=== PATIENT | male | born 1970 | race Caucasian/White ===

== ENCOUNTER 2025-03-22 12:41 | Outpatient (CLI) | payer OTHER, SELFPAY ==
--- OUTSIDE RECORDS SUMMARY | 2025-01-18 15:20 | XMS_ITS | Encounter Summary ---
[place] [address] Care Team Providers Care Electrical Tech Name Role Phone Javon Bo MD Unavailable [phone] Lisy Keene RETURNED TELEPHONE EQUIPMENT APPRAISER Unavailable Unavailabl e Judy You MD Unavailable [phone] Reason for Visit * Reason Comments Laceration Cut left arm with tr ee saw Encounter Details Date Type Department Care Team (Late st Contact Info) Description 01/18/2025 3:20 PM EDT Office Visit [facility] [place] [address] [address] Callum Rock MD [facility] [place] [place] [address] Laceration of left wrist, initial encounter (Primary Dx) Social History Tobacco Use Types Packs/Day Years Used Date Smoking Tobacco: Former Cigarettes Q uit: 2016 Smokeless Tobacco: Former Quit: 1995 Alcohol Use Standard Drinks/Week Comments Yes 0 (1 standard drink = 0.6 oz pur e alcohol) maybe once per week--beer B1300 Health Literacy Answer Date Recor ded How often do you need to hav e someone help you when you read instructions, pamphlets, or other written material from your doctor or pharmacy? Never 02/20/2024 Social Connection and Isolat ion Panel [NHANES] Answer Date Recorded In a typical week, how many times do you talk on the phone with family, friends, or neighbors? Twice a week 02/20/2024 How often do you get togethe r with friends or relatives? Once a week 02/20/2024 How often do you attend chur ch or amish services? More than 4 times per year 02/20/2024 Do you belong to any clubs o r organizations such as orthodox groups, unions, fraternal or athletic groups, or school groups? No 02/20/2024 How often do you attend meet ings of the clubs or organizations you belong to? Never 02/20/2024 Are you , , di vorced, , never , or living with a partner? 02/20/2024 AUDIT-C Answer Date Recorded Q1: How often do you have a drink containing alc ohol? 2-4 times a month 02/20/2024 Q2: How many drinks containi ng alcohol do you have on a typical day when you are drinking? 1 or 2 02/20/2024 Q3: How often do you have si x or more drinks on one occasion? Monthly 02/20/2024 Overall Financial Resource Strain (CARDIA) Answe r Date Recorded How hard is it for you to pa y for the very basics like food, housing, medical care, and heating? Not hard at all 02/20/2024 PHQ-2 Answer Date Recorded PHQ-2 Total Score 2 02/20/2024 [facility] Occupat ional [facility] - Occupational Stress Questionnaire Answer Date Recorded Do you feel stress - tense, restless, nervous, or anxious, or unable to sleep at night because your mind is troubled all the time - these days? Only a little 02/20/2024 Hunger Vital Sign Answer Date Recorded Within the past 12 months, y ou worried that your food would run out before you got the money to buy more. Never true 02/20/20 24 Within the past 12 months, t he food you bought just didn't last and you didn't have money to get more. Never true 02/20/2024 PRAPARE - Transportation Answer Date Re corded In the past 12 months, has l ack of transportation kept you from medical appointments or from getting medications? No 02/06 In the past 12 months, has l ack of transportation kept you from meetings, work, or from getting things needed for daily living? No 02/20/2024 Housing Stability Vital Sign Answer [place] e Recorded In the last 12 months, was t here a time when you were not able to pay the mortgage or rent on time? No 02/20/2024 Number of Times Moved in the Last Year Not on fi le 02/20/2024 At any time in the past 12 m [facility], were you homeless or living in a alf (including now)? No 02/20/2024 Sex and Gender Information Value Date Recorded Sex Assigned at Not on file Legal Sex Male 2:26 PM EDT Gender Identity Not on file Sexual Orientation Not on file documented as of this encounter Progress Notes * Callum Rock MD - 01/18/2025 3:20 PM EDT Images from the original note were not included. Assessment & Plan Laceration of left wrist, initial encounter Repaired as per note. Orders: CO SIMPLE REPAIR SCALP/NECK/AX/GENIT/TRUNK 2.5CM/< History of Present Illness Patient Identification Jovanny Costa is a 54 y.o. male. History of Present Illness Patient Identification Jovanny Costa is a 54 y.o. male. Patient information was obtained from patient. History/Exam limitations: none. Chief Complaint Laceration (Cut left arm with tree saw) Patient presents for evaluation of a laceration to the left upper extremity. Injury occurred 1/2 hours ago. The mechanism of the wound was a tree saw. The patient reports pain in the area. There werenot other injuries. Patient denies other concerns. The tetanus status is up to date. No past medical history on file. Family History Problem Relation Age of Onset Breast Cancer Mother Breast Cancer Sister Breast Cancer Maternal Grandmother Diabetes Paternal Grandfather Clotting Disorder Paternal Grandfather No current outpatient medications on file. No current facility-administered medications for this visit. No Known Allergies Social History Socioeconomic History Marital status: Spouse name: Not on file Number of children: Not on file Years of education: Not on file Highest education level: Not on file Occupational History Not on file Tobacco Use Smoking status: Former Current packs/day: 0.00 Types: Cigarettes Quit date: 2015 Years since quittin.3 Smokeless tobacco: Former Quit date: 1995 Vaping Use Vaping status: Never Used Substance and Sexual Activity Alcohol use: Yes Comment: maybe once per week--beer Drug use: Never Sexual activity: Not on file Other Topics Concern Not on file Social History Narrative Not on file Social Drivers of Health Financial Resource Strain: Low Risk (02/20/2024) Overall Financial Resource Strain (CARDIA) Difficulty of Paying Living Expenses: Not hard at all Food Insecurity: No Food Insecurity (02/20/2024) Hunger Vital Sign Worried About Running Out of Food in the Last Year: Never true Ran Out of Food in the Last Year: Never true Transportation Needs: No Transportation Needs (02/20/2024) PRAPARE - Transportation Lack of Transportation (Medical): No Lack of Transportation (Non-Medical): No Physical Activity: Not on file Stress: No Stress Concern Present (02/20/2024) [facility] - Occupational Stress Questionnaire Feeling of Stress : Only a little Social Connections: Moderately Integrated (02/20/2024) Social Connection and Isolation Panel [NHANES] Frequency of Communication with Friends and Family: Twice a week Frequency of Social Gatherings with Friends and Family: Once a week Attends Anabaptism Services: More than 4 times per year Active Member of Clubs or Organizations: No Attends Club or Organization Meetings: Never Marital Status: Intimate Partner Violence: Not At Risk (02/20/2024) Humiliation, Afraid, Rape, and Kick questionnaire Fear of Current or Ex-Partner: No Emotionally Abused: No Physically Abused: No Sexually Abused: No Housing Stability: Unknown (02/20/2024) Housing Stability Vital Sign Unable to Pay for Housing in the Last Year: No Number of Times Moved in the Last Year: Not on file Homeless in the Last Year: No Review of Systems Pertinent items are noted in HPI. Physical Exam There were no vitals taken for this visit. There is a linear laceration measuring approximately 2 cm in length on the left upper extremity. Examination of the wound for foreign bodies and devitalized tissue showed none. Examination of the surrounding area for neural or vascular damage showed none ED Course Treatments: Laceration repair: The wound area was irrigated with sterile saline and draped in a sterile fashion. The wound area was anesthetized with Lidocaine 1% without epinephrine without added sodium bicarbonate. The wound was repaired with 3-0 Vicryl; 3 sutures were used. Disposition: Home Nonsteroidals Patient information was obtained from patient. History/Exam limitations: none. Chief Complaint Laceration (Cut left arm with tree saw) Patient presents for evaluation of a laceration to the left wrist. Injury occurred 1/2 hour ago. The mechanism of the wound was a tree saw came down on his wrist. The patient reports pain in the affected area.. There were not other injuries. No past medical history on file. Family History Problem Relation Age of Onset Breast Cancer Mother Breast Cancer Sister Breast Cancer Maternal Grandmother Diabetes Paternal Grandfather Clotting Disorder Paternal Grandfather No current outpatient medications on file. No current facility-administered medications for this visit. No Known Allergies Social History Socioeconomic History Marital status: Spouse name: Not on file Number of children: Not on file Years of education: Not on file Highest education level: Not on file Occupational History Not on file Tobacco Use Smoking status: Former Current packs/day: 0.00 Types: Cigarettes Quit date: 2015 Years since quittin.3 Smokeless tobacco: Former Quit date: 1995 Vaping Use Vaping status: Never Used Substance and Sexual Activity Alcohol use: Yes Comment: maybe once per week--beer Drug use: Never Sexual activity: Not on file Other Topics Concern Not on file Social History Narrative Not on file Social Drivers of Health Financial Resource Strain: Low Risk (02/20/2024) Overall Financial Resource Strain (CARDIA) Difficulty of Paying Living Expenses: Not hard at all Food Insecurity: No Food Insecurity (02/20/2024) Hunger Vital Sign Worried About Running Out of Food in the Last Year: Never true Ran Out of Food in the Last Year: Never true Transportation Needs: No Transportation Needs (02/20/2024) PRAPARE - Transportation Lack of Transportation (Medical): No Lack of Transportation (Non-Medical): No Physical Activity: Not on file Stress: No Stress Concern Present (02/20/2024) [facility] - Occupational Stress Questionnaire Feeling of Stress : Only a little Social Connections: Moderately Integrated (02/20/2024) Social Connection and Isolation Panel [NHANES] Frequency of Communication with Friends and Family: Twice a week Frequency of Social Gatherings with Friends and Family: Once a week Attends Anabaptism Services: More than 4 times per year Active Member of Clubs or Organizations: No Attends Club or Organization Meetings: Never Marital Status: Intimate Partner Violence: Not At Risk (02/20/2024) Humiliation, Afraid, Rape, and Kick questionnaire Fear of Current or Ex-Partner: No Emotionally Abused: No Physically Abused: No Sexually Abused: No Housing Stability: Unknown (02/20/2024) Housing Stability Vital Sign Unable to Pay for Housing in the Last Year: No Number of Times Moved in the Last Year: Not on file Homeless in the Last Year: No Review of Systems Pertinent items are noted in HPI. Physical Exam There were no vitals taken for this visit. There is a linear laceration measuring approximately 1.5 cm in length on the left wrist. Examination of the wound for foreign bodies and devitalized tissue showed none. Examination of the surroundingarea for neural or vascular damage showed none ED Course Studies: None indicated. Records Reviewed: Old medical records. Progress Note: There were no vitals filed for this visit. There is no height or weight on file to calculate BMI. SUBJECTIVE: Chief Complaint Patient presents with Laceration Cut left arm with tree saw HPI: laceration to left arm - tree saw broke and hit him in wrist Review of Systems OBJECTIVE: Physical Exam Skin: documented in this encounter Plan of Treatment Upcoming Encounters Date Type Department Care Team (Late st Contact Info) Description 04/06/2025 1:20 PM EDT Office Visit [facility] [address] [place] [address] Evangelista Bagley MD [address] [place] [address] [address] [place] [address] 05/19/2025 10:00 AM EDT Appointment [facility] [address] [place] [address]. [address] [place] [address] 05/19/2025 10:15 AM EDT Appointment [facility] [address] [place] [address] [address] [place] [address] Simi Butts, [employer] [address] [place] [address] [address] [place] [address] 06/28/2025 9:45 AM EDT Appointment [facility] [address] [facility] [address] [place] [address] Judy You MD [address] [facility] [place] [address] Scheduled Orders Name Type Priority Associated Diagnoses Orde r Schedule CO SIMPLE REPAIR SCALP/NECK/AX/GENIT/T RUNK 2.5CM/< CO Charge Routine Laceration of left wrist, initial encounter Ordered: 01/18/2025 documented as of this encounter Goals Goal Patient Goal Type Associated Problems Recent Progress Patient-Stated? Author Maintain a healthy diet, exercise regularly and maintain an ideal body weight General No GroDilma sawyer CCMA Stay Tobacco Free Lifestyle No Dilma Gutierrez CCMA documented as of this encounter Visit Diagnoses Diagnosis Laceration of left wrist, initial encounter- Primary documented in this encounter Additional Health Concerns Assessment Noted Time PHQ-9 Depression Total Score: 2 02/20/20 10:36 AM EDT PHQ-2 Depression Total Score: 2 02/20/20 10:36 AM EDT documented as of this encounter Care Teams Electrical Tech Relationship Specialty Start Date End Date Javon Bo MD [address] [place] [address] Medical Oncologist Internal Medicine-Hematology and Oncology 02/19/24 Lisy Kenee, RETURNED TELEPHONE EQUIPMENT APPRAISER Y[employer] 02/24/24 Judy You MD [address] [facility] [place] [address] Radiology-Radiation Oncology 03/02/24 documented as of this encounter
--- OUTSIDE RECORDS SUMMARY | 2025-01-27 11:00 | XMS_ITS | Encounter Summary ---
Author Organization [place] [address] Care Team Providers Care Optimization Engineer Name Role Phone Javon Bo MD Unavailable [phone] Lisy Keene PSYCHIATRIC TECHNICIAN ASSISTANT Unavailable Unavailabl e Judy You MD Unavailable [phone] Reason for Visit * Reason Comments Suture / Staple Removal Left wrist Encounter Details Date Type Department Care Team (Latest Contact Info) Description 01/27/2025 11:00 AM EDT Clinical Support JAMES [place] [address] [place] [address] Peggy John MA Visit for suture removal (Primary Dx) Social History Tobacco Use Types [...] week 02/20/2024 How often do you attend [facility] or [facility]ahai services? More than 4 times per year 02/20/2024 Do you belong to any clubs o r organizations such as restorationism groups, unions, fraternal or athletic groups, or [...] Date Recorded PHQ-2 Total Score 2 02/20/2024 [facility] of Occupat ional [facility] - Occupational Stress Questionnaire Answer Date [...] any time in the past 12 m [facility], were you homeless or living in a retirement (including now)? No 02/20/2024 Sex and Gender Information Value Date Recorded Sex Assigned at Not on file Legal Sex Male 2:26 PM EDT Gender Identity Not on file Sexual Orientation Not on file documented as of this encounter Progress Notes * Peggy John MA - 01/27/2025 11:00 AM EDT Suture removal of the left lower wrist, 3 sutures taken out patient tolerated well. documented in this encounter Plan of Treatment Upcoming Encounters Date Type Department Care Team (Late st Contact Info) Description 04/06/2025 1:20 PM EDT Office Visit [facility] [address] [address] Evangelista Bagley MD [address] [place] [address] 05/19/2025 10:00 AM EDT Appointment [facility] [address] [place] [phone] 05/19/2025 10:15 AM EDT Appointment [facility] [address] [place] [address] Simi Butts, STANLEY [address] [facility] [address] [place] [address] 06/28/2025 9:45 AM EDT Appointment [facility] [address] [place] [phone] Judy You MD 1 [facility] [place] [address] Scheduled Orders Name Type Priority Associated Diagnoses Orde r Schedule [place] REMOVAL OF SUTURES [place] Charge Routine Visit for suture removal Ordered: 01/27/2025 documented as of this encounter Goals Goal Patient Goal Type Associated Problems Recent Progress Patient-Stated? Author Maintain a healthy diet, exercise regularly and maintain an ideal body weight General No Dilma Gutierrez CCMA Stay Tobacco Free Lifestyle No Dilma Gutierrez CCMA documented as of this encounter Visit Diagnoses Diagnosis Visit for suture removal- Primary Encounter for removal of sutures documented in this encounter Orders Immunization/Injection Count Last Ordered Date First Ordered Date TDAP VACCINE =>7YO IM 1 01/27/2025 documented in this encounter Additional Health Concerns Assessment Noted Time PHQ-9 Depression Total Score: 2 02/20/20 10:36 AM EDT PHQ-2 Depression Total Score: 2 02/20/20 10:36 AM EDT documented as of this encounter Care Teams Optimization Engineer Relationship Specialty Start Date End Date Javon Bo MD [address] [place] [address] Medical Oncologist Internal Medicine-Hematology and Oncology 02/19/24 Lisy Keene PSYCHIATRIC TECHNICIAN ASSISTANT [facility] [employer] [facility] 02/24/24 Judy You MD [address] [place] [address] [place] [address] Radiology-Radiation Oncology 03/02/24 documented as of this encounter
--- OUTSIDE RECORDS SUMMARY | 2025-02-10 13:12 | XMS_ITS | Encounter Summary ---
Author Organization [place] [address] Care Team Providers Care Edge Worker Name Role Phone Javon Bo MD Unavailable [phone] Lisy Keene CHUTE FEEDER Unavailable Unavailabl e Judy You MD Unavailable [phone] Encounter Details Date Type Department Care Team (Latest Contact Info) Description 02/10/2025 1:12 PM EDT - 02/10/2025 11:59 PM EDT Hospital Encounter [facility] [address] [place] [address] Tonsil cancer (HCC); History of tongue cancer [...] week 02/20/2024 How often do you attend [facility] or amish services? More than 4 times per year 02/20/2024 Do you belong to any clubs o r organizations such as bahai groups, unions, fraternal or athletic groups, or [...] Date Recorded PHQ-2 Total Score 2 02/20/2024 [facility] of Occupat ional Health - Occupational Stress [...] any time in the past 12 m [facility], were you homeless or living in a [place] health care facility (including now)? No 02/20/2024 Sex and Gender [...] 1:20 PM EDT Office Visit [facility] [address] [place] [address] Evangelista Bagley MD [address] [place] [address] [address] [place] [address] 05/19/2025 10:00 AM EDT Appointment [facility] [address] [place] [address] 05/19/2025 10:15 AM EDT Appointment [facility] [address] [place] [address] 100 [place] [address] Simi Butts, STANLEY [address] [place] [address] 200 [place] [address] 06/28/2025 9:45 AM EDT Appointment [facility] [address] [place] [address] Judy You MD 1 [facility]CER C[facility] [place], [place] [id number] documented as of this encounter Goals Goal [...] - 4.200 mcIU/mL 02/10/2025 8:23 PM EDT [facility] Blood VENOUS BLOOD / Unknown Venipuncture / Unknown 02/10/2025 1:13 PM EDT 02/10/2025 1:13 PM EDT Narrative PREFERRED [facility] - 02/10/2025 8:23 PM EDT Ingestion of lj doses of biotin (>5 mg/day) taken within 8 hours of drawing blood sample can interfere with this immunoassay test. Javon Bo MD CHEMISTRY ORDERABLES [facility] al Result PREFERRED [facility] 1 [facility] , [place] [address] documented in this encounter Visit Diagnoses Diagnosis Tonsil cancer (HCC) Malignant neoplasm of tonsil History of tongue cancer Personal history of malignant neoplasm of tongue documented in this encounter Additional Health Concerns Assessment Noted Time PHQ-9 Depression Total Score: 2 02/20/20 10:36 AM EDT PHQ-2 Depression Total Score: 2 02/20/20 10:36 AM EDT documented as of this encounter Care Teams Edge Worker Relationship Specialty Start Date End Date Javon Bo MD [address] [place] [address] Medical Oncologist Internal Medicine-Hematology and Oncology 02/19/24 Lisy Keene, CHUTE FEEDER Ampoule Sealer 02/24/24 Judy You MD 1 [facility] [place] [address] Radiology-Radiation Oncology 03/02/24 documented as of this encounter
--- OUTSIDE RECORDS SUMMARY | 2025-03-22 12:44 | XMS_ITS | Encounter Summary ---
Author Organization [facility] Address [address] [place] [address] Care Team Providers Care Sales Representative [employer] Name Role Phone Javon Bo MD Unavailable [phone] Lisy Keene REHABILITATION SUPERVISOR Unavailable Unavailabl e Judy You MD Unavailable [phone] Reason for Visit * Reason Onset Date Comments Other 02/04/2025 Encounter Details Date Type Department Care Team (Late st Contact Info) Description 02/04/2025 Telephone [facility] [address] [place] [address] Vibha Gamez, DANE Other Social History Tobacco Use Types Packs/Day Years [...] week 02/20/2024 How often do you attend [facility] or yarsani services? More than 4 times per year 02/20/2024 Do you belong to any clubs o r organizations such as sabianist groups, unions, fraternal or athletic groups, or [...] Date Recorded PHQ-2 Total Score 2 02/20/2024 [facility] of Occupat ional Health - [...] any time in the past 12 m [facility], were you homeless or living in a residential (including now)? No 02/20/2024 Sex and Gender Information Value Date Recorded Sex Assigned at Not on file Legal Sex Male 2:26 PM EDT Gender Identity Not on file Sexual Orientation Not on file documented as of this encounter Miscellaneous Notes * Telephone Encounter - Vibha Gamez RMA - 02/07/2025 1:00 PM EDT Patient will call us when he is ready to schedule PAC removal. * Telephone Encounter - Vibha Gamez RMA - 02/04/2025 1:44 PM EDT Left message for patient to call the office to schedule PAC removal. documented in this encounter Plan of Treatment Upcoming Encounters Date Type Department Care Team (Late st Contact Info) Description 04/06/2025 1:20 PM EDT Office Visit [facility] 40 [facility] 101 [place] [address] Evangelista Bagley MD 40 [facility] 101 [place] [address] 05/19/2025 10:00 AM EDT Appointment [facility] [address] [place] [address]. [address] [place] [id number] 05/19/2025 10:15 AM EDT Appointment [facility] [address] [place] [address] 100 [place] [address] Simi Butts, WOOD PILE DRIVER OPERATOR [address] [place] [address] [address] [place] [address] 06/28/2025 9:45 AM EDT Appointment [facility] [address] [place] [address] 100 [place] [address] Judy You MD 1 [facility] [place] [address] documented as of this encounter Goals Goal Patient Goal Type Associated Problems Recent Progress Patient-Stated? Author Maintain a healthy diet, exercise regularly and maintain an ideal body weight General No GroDilma sawyer CCMA Stay Tobacco Free Lifestyle No GroDilma sawyer CCMA documented as of this encounter Visit Diagnoses Not on filedocumented in this encounter Additional Health Concerns Assessment Noted Time PHQ-9 Depression Total Score: 2 02/20/20 10:36 AM EDT PHQ-2 Depression Total Score: 2 02/20/20 10:36 AM EDT documented as of this encounter Care Teams Sales Representative [employer] Relationship Specialty Start Date End Date Javon Bo MD 85 [place] [address] Medical Oncologist Internal Medicine-Hematology and Oncology 02/19/24 Lisy Keene, REHABILITATION SUPERVISOR Hospice Coordinator 02/24/24 Judy You MD 1 [facility] CANC[facility] [place], [place] [id number] Radiology-Radiation Oncology 03/02/24 documented as of this encounter
--- OUTSIDE RECORDS SUMMARY | 2025-03-22 12:44 | XMS_ITS | Encounter Summary ---
Author Organization [facility] [place] [address] Care Team Providers Care Manager Cargo Name Role Phone Javon Bo MD Unavailable [phone] Lisy Keene DRUG ABUSE WORKER Unavailable Unavailabl e Judy You MD Unavailable [phone] Encounter Details Date Type Department Care Team (Latest Contact Info) Description 01/25/2025 Travel Social History Tobacco Use Types Packs/Day Years [...] often do you attend chur ch or jainism services? More than 4 times per year 02/20/2024 Do you belong to any clubs o r organizations such as taoist groups, unions, fraternal or athletic groups, or [...] Date Recorded PHQ-2 Total Score 2 02/20/2024 [facility] [place] of Occupat ional Health - Occupational Stress [...] any time in the past 12 m [facility], were you homeless or living in a [facility] (including now)? No 02/20/2024 Sex and Gender Information Value Date Recorded Sex Assigned at Not on file Legal Sex Male 2:26 PM EDT Gender Identity Not on file Sexual Orientation Not on file documented as of this encounter Plan of Treatment Upcoming Encounters Date Type Department Care Team (Late st Contact Info) Description 04/06/2025 1:20 PM EDT Office Visit [facility] [place] 40 [facility] [address] [place] [address] Evangelista Bagley MD 40 [facility] 101 [place] [address] 05/19/2025 10:00 AM EDT Appointment [facility] 85 [facility]. [address] [place] [address] 05/19/2025 10:15 AM EDT Appointment [facility] [address] [place] [address] 100 [place] [address] Simi Butts, TOE SEWER 20 [facility] [address] [place], [place] [id number] 06/28/2025 9:45 AM EDT Appointment [facility] 85 [facility] 100 [place] [address] Judy You MD 1 [facility] [place] [address] documented as of this encounter Goals Goal [...] Time PHQ-9 Depression Total Score: 2 02/20/20 24 10:36 AM EDT PHQ-2 Depression Total Score: 2 02/20/20 24 10:36 AM EDT documented as of this encounter Care Teams Manager Cargo Relationship Specialty Start Date End Date Javon Bo MD [address] [place] [address] Medical Oncologist Internal Medicine-Hematology and Oncology 02/19/24 Lisy Keene, DRUG ABUSE WORKER Change House Attendant 02/24/24 Judy You MD 1 [place] [address] Radiology-Radiation Oncology 03/02/24 documented as of this encounter
--- OUTSIDE RECORDS SUMMARY | 2025-03-22 12:44 | XMS_ITS | Clinical Summary ---
Author Organization [facility] Address [address] [place] [address] Phone Care Team Providers Care Satellite Technician Name Role Phone Javon Bo MD Unavailable [phone] Lisy Keene POPCORN VENDOR Unavailable Unavailabl e Judy You MD Unavailable [phone] Allergies No known active allergies Medications No known medications Active Problems Problem Noted Date Diagnosed Date Age-related nuclear cataract of both eyes 2023 Assessment & Plan (04/16/2024 11:56 AM EDT): No surgery indicated. Patient states activities of daily living not reduced enough to proceed with surgery at this time. Discussed natural history of cataract progression and that patient can return at any time if symptoms worsen. Patient expressed understanding. 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 Advised to d/c rhoto drops. Recommended use of systane/refresh/blink artificial tears, systane complete sample given. 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 Refractive error 04/16/2024 Assessment & Plan (04/16/2024 11:57 AM EDT): He noticed great improvement at near and distance when demonstrating spectacle Rx. Presbyopic spectacle options discussed. Copy of Rx released. 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 Cancer Staging:Clinical:Stage I(cT2, cN1, cM0, p16+) - Signed by Judy You MD on 02/24/2024 Assessment & Plan (07/20/2024 10:25 AM EST): Orders: sodium chloride 0.9 % sterile syringe sodium chloride 0.9% syringe heparin flush 100 unit/mL injection 500 Units CBC WITH DIFF; Standing CBC WITH DIFF COMPREHENSIVE METABOLIC PANEL; Standing COMPREHENSIVE METABOLIC PANEL Encounters Date Type Department Care Team Description 02/10/2025 1:12 PM EDT - 02/10/2025 11:59 PM EDT Hospital Encounter [facility] [address] [place] [address] Tonsil cancer (HCC); History of tongue cancer Discharge Disposition: Home or Self Care 02/04/2025 Telephone [facility] [address] [place] [address] Vibha Gamez RMA Other 01/27/2025 11:00 AM EDT Clinical Support JAMES AGRAWAL [address] [place] [address] Pegyg John MA Visit for suture removal (Primary Dx) 01/25/2025 Travel 01/18/2025 3:20 PM EDT Office Visit [facility] [address] [place] [address] Callum Rock MD Laceration of left wrist, initial encounter (Primary Dx) 12/31/2024 Orders Only [facility] [address] [place] [address] Javon Bo MD Tonsil cancer (HCC) (Primary Dx); History of tongue cancer from Last 3 Months Immunizations Immunization Administration Dates Next Due Tdap 01/27/2025 Surgical History Surgery Date Site/Laterality Comments IR PORT PLACEMENT EQUAL OR > 5 YEARS 03/05/2024 IR PORT PLACEMENT EQUAL OR > 5 YEARS 03/05/2024 Callum Romeo MD [facility] IR Family History Medical History Relation Name Comments Breast Cancer Maternal Grandmother Breast Cancer Mother Clotting Disorder Paternal Grandfather Diabetes Paternal Grandfather Breast Cancer Sister Relation Name Status Comments Maternal Grandmother Mother Paternal Grandfather Sister Social History Tobacco Use Types Packs/Day Years Used Date Smoking Tobacco: Former Cigarettes Q uit: 2016 Smokeless Tobacco: Former Quit: 1995 Tobacco Cessation:Counseling Given: Not Answered Alcohol Use Standard Drinks/Week Comments Yes 0 [...] 02/20/2024 How often do you attend chur or advent services? More than 4 times per year 02/20/2024 Do you belong to any clubs o r organizations such as presybeterian groups, unions, fraternal or athletic groups, or [...] Date Recorded PHQ-2 Total Score 2 02/20/2024 [facility] of Occupat ional Health - Occupational Stress [...] time in the past 12 m [facility], were you homeless or living in a penitentiary (including now)? No 02/20/2024 Sex and Gender Information Value Date Recorded Sex Assigned at Not on file Legal Sex Male 2:26 PM EDT Gender Identity Not on file Sexual Orientation Not on file Obstetrics History Last Filed Vital Signs Vital Sign Reading Time Taken Comments Blood Pressure 114/71 12/20/2024 10:13 AM EDT Pulse 62 12/20/2024 10:13 AM EDT Temperature 36.5 C (97.7 F) 11/16/2024 10:38 AM EDT Respiratory Rate 16 12/20/2024 10:13 AM EDT Oxygen Saturation 100% 12/20/2024 10:13 AM EDT Inhaled Oxygen Concentration - - Weight 76.2 kg (168 lb) 12/20/2024 10:13 AM EDT Height 180.3 cm (5' 11 ) 12/20/2024 10:13 AM EDT Body Mass Index 23.43 12/20/2024 10:13 AM EDT Plan of Treatment Upcoming Encounters Date Type Department Care Team (Late st Contact Info) Description 04/06/2025 1:20 PM EDT Office Visit [facility] 40 [facility] 101 [place] [address] Evangelista Bagley MD 40 [facility] 101 [place] [address] 05/19/2025 10:00 AM EDT Appointment [facility] [address] [place] [address] 100 [place] [address] 05/19/2025 10:15 AM EDT Appointment [facility] [address] [place] [address] 100 [place], [place] [id number] Simi Butts, COMMUNITY AMBASSADOR 20 [facility] [address] [place] [address] 06/28/2025 9:45 AM EDT Appointment [facility] [address] [place] [address] 100 [place] [address] Judy You MD 1 [facility] [place] [place] [address] Health Maintenance Due Date Last Done Comments Annual Wellness Exam 1974 Hepatitis B Vaccine (1 of 3 - 19+ 3-dose series) 1990 Cologuard 01/29/2016 Colon Cancer Screening 01/29/2016 Colonoscopy 01/29/2016 FIT 01/29/2016 Sigmoidoscopy 01/29/2016 Virtual Colonography 01/29/2016 Pneumococcal Vaccine 50+ (1 of 1 - PCV) 2021 COVID-19 Vaccine ( - 2023-2 5 season) 2024 Influenza Vaccine (#1) 2025 DTaP/TDaP/Td (2 - Td or Tdap) 01/27/2035 01/27/2025 Zoster Completed 07/23/2024, 05/07/2024 Meningococcal B Vaccine Aged Out No l onger eligible based on patient's age to complete this topic Goals Goal Patient Goal Type Associated Problems Recent Progress Patient-Stated? Author Maintain a healthy diet, exercise regularly and maintain an ideal body weight General No Grooms, Dilma, CCMA Stay Tobacco Free Lifestyle No Grooms, Dilma, CCMA Medical Devices Implanted Type Area Manager Of Clinical Device Identifier Shelf Expiration Date Model / Serial / Lot Port Calin Ti Vortex 8fr W/Attachable Bioflo Cath-03/05/2024 Implanted:Qty: 1 on 03/05/2024 by Callum Romeo MD [employer] [id number] Procedures Procedure Name Priority Date/Time Associated Diagnosis Comments THYROID STIMULATING HORMONE Routine 02/10/2025 1:13 PM EDT Tonsil cancer (HCC) History of tongue cancer from Last 3 Months Results * THYROID STIMULATING HORMONE (02/10/2025 1:13 PM EDT) TSH 3.650 0.270 - 4.200 mcIU/mL 02/10/2025 8:23 PM EDT PREFERRED [facility] Blood VENOUS BLOOD / Unknown Venipuncture / Unknown 02/10/2025 1:13 PM EDT 02/10/2025 1:13 PM EDT Narrative PREFERRED [facility] - 02/10/2025 8:23 PM EDT Ingestion of lj doses of biotin (>5 mg/day) taken within 8 hours of drawing blood sample can interfere with this immunoassay test. us Javon Bo MD CHEMISTRY ORDERABLES Fin al Result PREFERRED [facility] 1 [facility] , [place] [address] from Last 3 Months Insurance AETNA POS AETNA POS AETNA POS Care Teams Satellite Technician Relationship Specialty Start Date End Date Javon Bo MD [address] [place] [address] Medical Oncologist Internal Medicine-Hematology and Oncology 02/19/24 Lisy Keene, POPCORN VENDOR Hydraulic Boom Operator 02/24/24 Judy You MD [address] [place] [address] Radiology-Radiation Oncology 03/02/24
--- OUTSIDE RECORDS SUMMARY | 2025-03-22 12:44 | XMS_ITS | Patient Health Record ---
Author Organization [facility] Address [address] [id number] Care Team Providers Care Signal And Communications Maintainer Name Role Phone Kaia LUIS, Marva Unavailable [phone] Reason For Referral No Information Medications Medication SIG (Take, Route, Frequency, Duration) Notes Start Date End Date Status halobetasol topical 0.05% 1 reginald applied topically 2 times a day PRN flares Active Social History Alcohol Question Answer Notes How often did you have a dri nk containing alcohol in the past year? 2 to 4 times a month (2 points) Points 2 Interpretation Negative Problems Problem Type SNOMED Code ICD Code Onset Dates Problem Status W/U Status Risk Notes Problem Atopic dermatitis, unspecified (L20.9) Active confirmed Hand eczema vs psoriasis Plan Of Treatment No Information Insurance Providers Payer Name Payer Address Payer Phone Subscriber Number Group Number Insured Name Patient Relationship to Insured Coverage Start Date Coverage End Date [facility] ([facility] [address] [place] [phone] [id number] Jovanny Costa Self - patient is the insured Medical (General) History Medical History History ICD Code Height/weight: 5'11 200Lb Current/ongoing medical conditions: None Medications: None Drug allergies: No Antibiotics prior to surgery or dental w ork: No : not applicable Pharmacy: [facility] Medical disclosure: Me Smoking: No psoriasis
--- NOTE | 2025-03-22 12:49 | XR_ITS ---
FINAL REPORT CLINICAL HISTORY: right shoulder pain FINDINGS: Three views show no evidence of acute displaced fracture or dislocation of the visualized bony architecture. The joint spaces appear normal. IMPRESSION: Unremarkable exam. Reviewed, Interpreted and Dictated by Denise Cruz MD Transcribed by Linda Avendaño Authenticated and [facility]
== END 2025-03-22 23:59 | disposition home or self-care (01) ==
LOC: RAD 12:43
PROVIDERS: Visit Provider Orthopaedic Surgery
DX: M25.511 Pain in right shoulder (principal)
CPT/HCPCS: 73030

== ENCOUNTER 2025-04-07 07:07 | Outpatient (CLI) | payer OTHER, SELFPAY ==
--- OUTSIDE RECORDS SUMMARY | 2025-02-10 13:12 | XMS_ITS | Encounter Summary ---
Author Organization [place] [address] Care Team Providers Care Field Service Coordinator Name Role Phone Javon Bo MD Unavailable [phone] Lisy Keene APRICOT WASHER Unavailable Unavailabl e Judy You MD Unavailable [phone] Encounter Details Date Type Department Care Team (Latest Contact Info) Description 02/10/2025 1:12 PM EDT - 02/10/2025 11:59 PM EDT Hospital Encounter [facility] [address] [place] [address] Tonsil cancer (HCC); History of tongue cancer Discharge Disposition: Home or Self Care Social History Tobacco Use Types Packs/Day Years [...] How often do you attend [facility] or [facility] services? More than 4 times per year 02/20/2024 Do you belong to any clubs o r organizations such as methodist groups, unions, fraternal or athletic groups, or [...] Date Recorded PHQ-2 Total Score 2 02/20/2024 [facility] of Occupat ional Health - Occupational Stress Questionnaire Answer Date Recorded [...] any time in the past 12 m [facility], were you homeless or living in a jail (including now)? No 02/20/2024 Sex and Gender Information Value Date Recorded Sex Assigned at Not on file Legal Sex Male 2:26 PM EDT Gender Identity Not on file Sexual Orientation Not on file documented as of this encounter Discharge Disposition Disposition Code Departure Means Destination Home or Self Care documented in this encounter Plan of Treatment Upcoming Encounters Date Type Department Care Team (Late st Contact Info) Description 05/19/2025 10:00 AM EDT Appointment [facility] [address] [facility] [address] [place] [phone] 05/19/2025 10:15 AM EDT Appointment [facility] [address] [place] [address] [address] [place] [address] Simi Butts, WEATHERSTRIP MACHINE OPERATOR 20 [facility] 200 [place], [place] [address] 06/28/2025 9:45 AM EDT Appointment [facility] [address] [place] [address] [address] [place] [address] Judy You MD 1 [facility] [place], [place] [id number] 10/05/2025 1:50 PM EST Office Visit [facility] [address] [address] Evangelista Bagley MD [address] [place] [address] [address] [place] [address] documented as of this encounter Goals Goal Patient Goal Type Associated Problems Recent Progress Patient-Stated? Author Maintain a healthy diet, exercise regularly and maintain an ideal body weight General No Dilma Gutierrez CCMA Stay Tobacco Free Lifestyle No Dilma Gutierrez CCMA documented as of this encounter Procedures Procedure Name Priority Date/Time Associated Diagnosis Comments THYROID STIMULATING HORMONE Routine 02/10/2025 1:13 PM EDT Tonsil cancer (HCC) History of tongue cancer documented in this encounter Results * THYROID STIMULATING HORMONE (02/10/2025 1:13 PM EDT) TSH 3.650 0.270 - 4.200 mcIU/mL 02/10/2025 8:23 PM EDT [employer] Blood VENOUS BLOOD / Unknown Venipuncture / Unknown 02/10/2025 1:13 PM EDT 02/10/2025 1:13 PM EDT Narrative PREFERRED [employer] - 02/10/2025 8:23 PM EDT Ingestion of lj doses of biotin (>5 mg/day) taken within 8 hours of drawing blood sample can interfere with this immunoassay test. Javon Bo MD CHEMISTRY ORDERABLES Fin al Result PREFERRED [facility] [address] [facility] , [place] [address] documented in this encounter Visit Diagnoses Diagnosis Tonsil cancer (HCC) Malignant neoplasm of tonsil History of tongue cancer Personal history of malignant neoplasm of tongue documented in this encounter Additional Health Concerns Assessment Noted Time PHQ-9 Depression Total Score: 2 02/20/20 10:36 AM EDT PHQ-2 Depression Total Score: 2 02/20/20 10:36 AM EDT documented as of this encounter Care Teams Field Service Coordinator Relationship Specialty Start Date End Date Javon Bo MD [address] [place] [address] Medical Oncologist Internal Medicine-Hematology and Oncology 02/19/24 Lisy Keene, APRICOT WASHER Print Line Inspector 02/24/24 Judy You MD [address] [place] [address] [place] [address] Radiology-Radiation Oncology 03/02/24 documented as of this encounter
--- OUTSIDE RECORDS SUMMARY | 2025-04-06 13:20 | XMS_ITS | Encounter Summary ---
Author Organization [facility] Address [address] [place] [phone] Care Team Providers Care Hand Folder Name Role Phone Javon Bo MD Unavailable [phone] Lisy Keene INSTRUMENT LENS GRINDER APPRENTICE Unavailable Unavailabl e Judy You MD Unavailable [phone] Reason for Referral * (Routine) - Pending Review Specialty Diagnoses / Procedures Referred By Amarilis sinclair Referred To Contact Diagnoses Squamous cell carcinoma of tonsils (HCC) Hx of radiation therapy History of chemotherapy Procedures [place] LARYNGOSCOPY FLEXIBLE DIAGNOSTIC Evangelista Bagley MD [address] [place] [phone] Phone: tel: fax: Referral ID Status Reason Start Date Expiration Date V isits Requested Visits Authorized [id number] Pending Review 04/06/2025 04/06/2026 1 1 Reason for Visit * Reason Comments Follow Up Tonsil cancer Encounter Details Date Type Department Care Team (Late st Contact Info) Description 04/06/2025 1:20 PM EDT Office Visit [facility] [address] [address] Evangelista Bagley MD [address] [place] [phone] Squamous cell carcinoma of tonsils (HCC) (Primary Dx); Hx of radiation therapy; History of chemotherapy Social History Tobacco Use Types Packs/Day Years [...] How often do you attend chur or moravian services? More than 4 times per year 02/20/2024 Do you belong to any clubs o r organizations such as gnosticism groups, unions, fraternal or athletic groups, or [...] Date Recorded PHQ-2 Total Score 2 02/20/2024 [facility] [place] of Occupat ional Health - Occupational Stress [...] any time in the past 12 m [facility], were you homeless or living in a senior care (including now)? No 02/20/2024 Sex and Gender Information Value Date Recorded Sex Assigned at Not on file Legal Sex Male 2:26 PM EDT Gender Identity Not on file Sexual Orientation Not on file documented as of this encounter Last Filed Vital Signs Vital Sign Reading Time Taken Comments Blood Pressure - - Pulse - - Temperature 36.2 C (97.2 F) 04/06/2025 1:00 PM EDT Respiratory Rate - - Oxygen Saturation - - Inhaled Oxygen Concentration - - Weight 75.7 kg (166 lb 12.8 oz) 04/06/2025 1:00 PM EDT Height 180.3 cm (5' 11 ) 04/06/2025 1:00 PM EDT Body Mass Index 23.26 04/06/2025 1:00 PM EDT documented in this encounter Progress Notes * Evangelista Bagley MD - 04/06/2025 1:20 PM EDT Images from the original note were not included. Jovanny Costa 1970 55 y.o. male 04/06/2025 Established Evangelista Bagley MD, ENT [facility] Referring Provider: No ref. provider found No chief complaint on file. HPI Jovanny Costa is a 55 y.o. male who is here today for a check up on their cancer. The cancer is located the tonsils. The cancer was found 02/12/24. Jovanny was last seen on 09/24/2024. The patient : is generally feeling well Patient reports their weight: stayed the same Is there sore throat, difficult swallowing, voice changes or difficulty breathing? List. none Is the patient having pain? No Is the patient of pain medication? no Symptoms are: none Does the patient see oncologist? Yes; Was last seen on in October Is the patient currently undergoing chemotherapy? no Is the patient currently undergoing radiation? no The patient completed chemotherapy? Yes - 04/09/2024 The patient completed radiation? Yes- 04/09/2024 Does the patient have a history of smoking? yes Recent testing? none Does the patient have any trouble with anesthesia? no Is there a family history of: Trouble with anesthesia? no Malignant Hyperthermia (high fever due to anesthesia)? no Pseudo cholinesterase deficiency (enzyme deficiency/very long time to wake from anesthesia)? no Oncology History History of tongue cancer 02/12/2024 Initial Diagnosis Tonsil cancer (HCC) 03/08/2024 - 04/27/2024 Radiation Tx External beam radiotherapy to a total of 70 Gy. Delivered in 35 fractions. Primary Radiation Oncologist, Dr. You. Has the patient tested positive for COVID-19 in the past 5 days? No Has the patient experienced any NEW onset: fever; cough; sore throat; vomiting; or diarrhea? No I, Dr.Patrick Hipolito Bagley, have personally reviewed all above HPI elements in person and have updated asneeded. Medical History: No past medical history on file. 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 04/16/2024 Refractive error 04/16/2024 Hx of LASIK 04/16/2024 History of tongue cancer 02/12/2024 No current outpatient medications No Known Allergies Past Surgical History: Procedure Laterality Date IR PORT PLACEMENT EQUAL OR > 5 YEARS 03/05/2024 IR PORT PLACEMENT EQUAL OR > 5 YEARS 03/05/2024 Callum Romeo MD [facility]TT IR Social History Tobacco Use Smoking status: Former Current packs/day: 0.00 Types: Cigarettes Quit date: 2015 Years since quittin.5 Smokeless tobacco: Former Quit date: 1995 Vaping Use Vaping status: Never Used Substance Use Topics Alcohol use: Yes Comment: maybe once per week--beer Drug use: Never Family History Problem Relation Age of Onset Breast Cancer Mother Breast Cancer Sister Breast Cancer Maternal Grandmother Diabetes Paternal Grandfather Clotting Disorder Paternal Grandfather ROS Positive: ENT; Tonsil cancer Exam: There were no vitals filed for this visit.There is no height or weight on file to calculate BMI. General: -: well nourished, well developed, well groomed, age appropriate oral communication, normal voice sounds, no stridor Head and Face: -: no abnormalities of head and face, facial strength symmetrical Eyes: -: ocular mobility and gaze alignment normal External Nose: -: Nasal dorsum grossly normal, without lesion Internal Nose: -: Septum midline, nasal mucosa normal in color and texture, turbinates normal Hearing: -: Clinical hearing thresholds-Normal Right Ear: -: Right auricle, EAC and TM Normal, Pre and post-auricular soft tissue and pinna normal Left Ear: -: Left auricle, EAC and TM normal, Pre and post-auricular soft tissue and pinna normal Oral Cavity: -: Appeared normal- including lips, dentition and tongue Oropharynx: -: Mucosa without lesion, tongue, hard palate, soft palate and tonsillar fossa within normal limits Nasopharynx: Fiberoptic scope exam: please see procedure note for description Hypopharynx: Hypopharynx: fiberoptic scope exam-see procedure note Larynx: -: Voice normal, no stridor Larynx: fiberoptic scope exam-see procedure note Thyroid: -: Thyroid not enlarged, symmetric, no tenderness, mass, nodules noted Neck: -: No masses noted on palpation Lymphatic: -: Palpation of the cervical and paratracheal lymph nodes reveals no adenopathy Respiratory: -: Inspection of chest reveals symmetrical shape and expansion with respiration Cardio: Neurological: -: Normal mood and affect, Alert, appropriate and does not appear agitated, Oriented to time, place and person Assessment and Plan: Jovanny was seen today for follow up. 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 PET/CT from July 2024 showed excellent response to treatment with minimal residual uptake in the oropharynx presenting for follow-up. TSH level performed in February 2025 was normal. He reports he is doing well with no weight loss, hemoptysis, dysphagia. He has persistent oropharyngeal dryness which is unchanged. No evidence of recurrent or residual disease on physical exam. I recommended laryngoscopy and this was unremarkable. Recommended routine 6-month follow-up. PROCEDURE NOTE: Procedure: Flexible Fiberoptic Laryngoscopy Indication: Lexx of OP cancer Surgeon: Evangelista Bagley MD. Anesthesia: Oxymetazoline and Pontocaine EBL: None Correct site procedure and patient confirmed, informed consent obtained. Description of Procedure: Utilizing a flexible 3-4 mm scope, this was passed through the nasal passageways with inspection ofthe nasopharynx, oropharynx, hypopharynx and larynx. Following findings were noted. Findings: BOT: Post RT changes. Epiglottis: WNL AE Folds: WNL Arytenoids: WNL False cords: WNL True cords: WNL Pyriforms: WNL Post Cricoid space: WNL Nasopharynx: WNL Patient tolerated the procedure well. Return in about 6 months (around 10/07/2025). [facility] ENT ENT [address] [facility] [address] This note may have been partially dictated using Ari[employer] voice recognition software and may contain unintended error. documented in this encounter Plan of Treatment Upcoming Encounters Date Type Department Care Team (Late st Contact Info) Description 05/19/2025 10:00 AM EDT Appointment [facility] [address] [place] [address]. [address] [place] [address] 05/19/2025 10:15 AM EDT Appointment [facility] MED ONC [address] [place] [address] [address] [place] [address] Simi Butts, CABANA ATTENDANT 20 [facility] [address] [place] [address] 06/28/2025 9:45 AM EDT Appointment [facility] RADIATION 85 [facility] 100 [place] [address] Judy You MD 1 [facility] [place], [place] [id number] 10/05/2025 1:50 PM EST Office Visit [facility] 40 [facility] 101 [place] [address] Evangelista Bagley MD 40 [facility] 101 [place] [address] Scheduled Orders Name Type Priority Associated Diagnoses Orde r Schedule [place] LARYNGOSCOPY FLEXIBLE DIAGNOSTIC [place] Charge Routine Squamous cell carcinoma of tonsils (HCC) Hx of radiation therapy History of chemotherapy Ordered: 04/06/2025 documented as of this encounter Goals Goal Patient Goal Type Associated Problems Recent Progress Patient-Stated? Author Maintain a healthy diet, exercise regularly and maintain an ideal body weight General No Dilma Gutierrez CCMA Stay Tobacco Free Lifestyle No Dilma Gutierrez CCMA documented as of this encounter Visit Diagnoses Diagnosis Squamous cell carcinoma of tonsils (HCC)- Primary Malignant neoplasm of tonsil Hx of radiation therapy Personal history of irradiation, presenting hazards to health History of chemotherapy Personal history of antineoplastic chemotherapy documented in this encounter Additional Health Concerns Assessment Noted Time PHQ-9 Depression Total Score: 2 02/20/20 10:36 AM EDT PHQ-2 Depression Total Score: 2 02/20/20 10:36 AM EDT documented as of this encounter Care Teams Hand Folder Relationship Specialty Start Date End Date Javon Bo MD [address] [place], [place] [id number] Medical Oncologist Internal Medicine-Hematology and Oncology 02/19/24 Lisy Keene, INSTRUMENT LENS GRINDER APPRENTICE Associate Software Developer 02/24/24 Judy You MD 1 [facility] [place] [place] [address] Radiology-Radiation Oncology 03/02/24 documented as of this encounter
--- OUTSIDE RECORDS SUMMARY | 2025-04-07 07:09 | XMS_ITS | Encounter Summary ---
Author Organization [facility] Address [address] [place] [address] Care Team Providers Care Dyslexia Teacher Name Role Phone Javon Bo MD Unavailable [phone] Lisy Keene MINES INSPECTOR Unavailable Unavailabl e Judy You MD Unavailable [phone] Reason for Visit * Reason Onset Date Comments Other 02/04/2025 Encounter Details Date Type Department Care Team (Late st Contact Info) Description 02/04/2025 Telephone [facility] [address] [place] [address] Vibha Gamez, DANE Other Social History Tobacco [...] week 02/20/2024 How often do you attend [facility] or latter-day services? More than 4 times per year 02/20/2024 Do you belong to any clubs o r organizations such as cheondoism groups, unions, fraternal or athletic groups, or [...] Date Recorded PHQ-2 Total Score 2 02/20/2024 [facility] of Occupat ional Health - Occupational Stress [...] any time in the past 12 m [facility], were you homeless or living in a skilled nursing (including now)? No 02/20/2024 Sex and Gender [...] EDT Appointment [facility] 85 [facility] [address] [place] [phone] 05/19/2025 10:15 AM EDT Appointment [facility] MED ONC 85 [facility] [address] [place] [address] Simi Butts, FORMAL WAITER/WAITRESS 20 [facility] [address] [place] [address] 06/28/2025 9:45 AM EDT Appointment [facility] RADI[facility] [address] [place] [address] [address] [place] [address] Judy You MD 1 [facility] [place] [address] 10/05/2025 1:50 PM EST Office Visit [facility] [place] 40 [facility] 101 [place] [phone] Evangelista Bagley MD [address] [facility] 101 [place] [id number] documented as of this encounter Goals Goal [...] documented as of this encounter Care Teams Dyslexia Teacher Relationship Specialty Start Date End Date Javon Bo MD [address] [place] [address] Medical Oncologist Internal Medicine-Hematology and Oncology 02/19/24 Lisy Keene, MINES INSPECTOR [employer] 02/24/24 Judy You MD [address] [place] [address] [place] [address] Radiology-Radiation Oncology 03/02/24 documented as of this encounter
--- OUTSIDE RECORDS SUMMARY | 2025-04-07 07:09 | XMS_ITS | Clinical Summary ---
Author Organization [facility] Address [address] [place] [address] Phone Care Team Providers Care Boiler Tenders Supervisor Name Role Phone Javon Bo MD Unavailable [phone] Lisy Keene PAPER CUTTING MACHINE OPERATOR Unavailable Unavailabl e Judy You MD Unavailable [phone] Allergies No known active allergies Medications No [...] Encounters Date Type Department Care Team Description 04/06/2025 1:20 PM EDT [facility] 101 [place] [address] Evangelista Bagley MD Squamous cell carcinoma of tonsils (HCC) (Primary Dx); Hx of radiation therapy; History of chemotherapy 02/10/2025 1:12 PM EDT - 02/10/2025 11:59 PM EDT Hospital Encounter [facility] [address] [place] [address] Tonsil cancer (HCC); History of tongue cancer Discharge Disposition: Home or Self Care 02/04/2025 Telephone [facility] [address] [place] [address] Vibha Gmaez, Christo Other 01/27/2025 11:00 AM EDT Clinical Support JAMES AGRAWAL [address] [place] [address] Peggy John MA Visit for suture removal (Primary Dx) 01/25/2025 Travel 01/18/2025 3:20 PM EDT Office Visit [facility] [address] [place] [phone] Callum Rock MD Laceration of left wrist, initial encounter (Primary Dx) from Last 3 Months Immunizations Immunization Administration [...] How often do you attend chur or holiness services? More than 4 times per year 02/20/2024 Do you belong to any clubs o r organizations such as judaism groups, unions, fraternal or athletic groups, or [...] Date Recorded PHQ-2 Total Score 2 02/20/2024 [facility] [place] of Occupat ional Health - Occupational Stress [...] Pulse 62 12/20/2024 10:13 AM EDT Temperature 36.2 C (97.2 F) 04/06/2025 1:00 PM EDT Respiratory Rate 16 12/20/2024 10:1 3 AM EDT Oxygen Saturation 100% 12/20/2024 10: 13 AM EDT Inhaled Oxygen Concentration - - Weight 75.7 kg (166 lb 12.8 oz) 04/06/2025 1:00 PM EDT Height 180.3 cm (5' 11 ) 04/06/2025 1:00 PM EDT Body Mass Index 23.26 04/06/2025 1:00 PM EDT Plan of Treatment Upcoming Encounters Date Type Department Care Team (Late st Contact Info) Description 05/19/2025 10:00 AM EDT Appointment [facility] [address] [place] [address]. [address] [place] [phone] 05/19/2025 10:15 AM EDT Appointment [facility] MED ONC [address] [place] [address] 100 [place] [address] Simi Butts, STANLEY 20 [facility] 200 [place], [place] [id number] 06/28/2025 9:45 AM EDT Appointment [facility] RAD[facility] [address] [place] [address] 100 [place] [address] Judy You MD 1 [facility] C[facility] C[facility] [place], [place] [id number] 10/05/2025 1:50 PM EST Office Visit [facility] [address] [address] Evangelista Bagley MD 40 [facility] 101 [place] [address] Health Maintenance Due Date Last Done Comments [...] Dilma, CCMA Stay Tobacco Free Lifestyle No GroomsDilma, JACINTAA Medical Devices Implanted Type Area Material Lister Device Identifier Shelf Expiration Date Model / Serial / Lot Port Calin Ti Vortex 8fr W/Attachable Bioflo Cath-03/05/2024 Implanted:Qty: 1 on 03/05/2024 by Callum Romeo MD [employer] [id number] Procedures Procedure Name Priority Date/Time Associated Diagnosis Comments THYROID STIMULATING HORMONE Routine 02/10/2025 1:13 PM EDT Tonsil cancer (HCC) History of tongue cancer from Last 3 Months Results * THYROID STIMULATING HORMONE (02/10/2025 1:13 PM EDT) TSH 3.650 0.270 - 4.200 mcIU/mL 02/10/2025 8:23 PM EDT PREFERRED [employer] Blood VENOUS BLOOD / Unknown Venipuncture / Unknown 02/10/2025 1:13 PM EDT 02/10/2025 1:13 PM EDT Narrative PREFERRED [employer] - 02/10/2025 8:23 PM EDT Ingestion of lj doses of biotin (>5 mg/day) taken within 8 hours of drawing blood sample can interfere with this immunoassay test. us Javon Bo MD CHEMISTRY ORDERABLES Fin al Result PREFERRED [employer] 1 [facility] , [place] [address] from Last 3 Months Insurance AETNA POS AETNA POS AETNA POS Care Teams Boiler Tenders Supervisor Relationship Specialty Start Date End Date Javon Bo MD [address] [place] [address] Medical Oncologist Internal Medicine-Hematology and Oncology 02/19/24 Lisy Keene, PAPER CUTTING MACHINE OPERATOR Saxophone Teacher 02/24/24 Judy You MD [address] [place] [address] [place] [address] Radiology-Radiation Oncology 03/02/24
--- OUTSIDE RECORDS SUMMARY | 2025-04-07 07:09 | XMS_ITS | Patient Health Record ---
Author Organization [facility] Address [address] [id number] Care Team Providers Care Solar Installation Technician Name Role Phone Kaia LUISMarva Unavailable [phone] Reason For Referral No Information Medications Medication [...] Status W/U Status Risk Notes Problem Atopic dermatitis (23693581) Atopic dermatitis, unspecified (L20.9) Active confirmed Hand eczema vs psoriasis Plan Of Treatment No Information Insurance Providers Payer Name Payer Address Payer Phone Subscriber Number Group Number Insured Name Patient Relationship to Insured Coverage Start Date Coverage End Date [facility] ([facility] [address] [place] [address] [phone] [id number] Jovanny Costa Self - patient is the insured Medical (General) History Medical History History ICD Code Height/weight: 5'11 200Lb Current/ongoing medical conditions: None Medications: None Drug allergies: No Antibiotics prior to surgery or dental w ork: No : not applicable Pharmacy: [facility] Medical disclosure: Me Smoking: No psoriasis
--- NOTE | 2025-04-07 07:30 | MR_ITS ---
FINAL REPORT TECHNIQUE: Multiplanar and multisequence imaging of the shoulder was obtained without contrast. CLINICAL HISTORY: pain injury to right shoulder while carrying a bucket of water COMPARISON: None FINDINGS: Bones and joints: There is no acute fracture, edema, or pathologic marrow replacement. Acromioclavicular joint degenerative disease is present and there is osteophytosis which narrows the supraspinatus outlet. Rotator cuff: No full-thickness rotator cuff tear is identified. There is mild supraspinatus and infraspinatus tendinopathy present. No subscapularis tendon tear. There is no fatty atrophy of the rotator cuff muscles. Labrum: The biceps labral complex is intact. No labral tear is identified. The inferior glenohumeral ligament is intact. There is mild edema in the axillary recess. The biceps tendon is intact. No biceps tendon tear is identified. Other: There is no significant joint effusion. Remaining soft tissues are within normal limits. IMPRESSION: Mild supraspinatus and infraspinatus tendinopathy without focal tears. Mild edema in the axillary recess, correlate clinically for possible adhesive capsulitis. Reviewed, Interpreted and Dictated by Martina Rebollar MD Transcribed by Tahira Keene Authenticated and [facility]
== END 2025-04-07 23:59 | disposition home or self-care (01) ==
LOC: RAD 07:08
PROVIDERS: Visit Provider Physician Assistant
DX: M67.813 Other specified disorders of tendon, right shoulder (principal); R60.0 Localized edema; R93.6 Abnormal findings on diagnostic imaging of limbs
CPT/HCPCS: 73221

== ENCOUNTER 2025-05-04 15:00 | Outpatient (RCR) | payer OTHER, SELFPAY ==
--- NOTE | 2025-04-21 13:20 | HMH.OTOPEV ---
OT Inpatient Evaluation Rehab OT Outpatient Eval Start: 04/21/25 11:29 Freq: Status: Active Protocol: Document 04/21/25 11:31 [facility] (Rec: 04/21/25 11:45 [id number]) E-signed By Timothy Rivas, OT Outpatient Therapy Subjective History Subjective History Pt is a 55 year old male who reports to therapy for initial evaluation to right shoulder. Pt reports he began having pain at right shoulder in November of 2024. He does not recall a specific injury that caused his shoulder to begin having pain. He does report carrying a 5 gallon bucket often with right arm that could have contributed to his pain. Pt is right hand dominant. Pt has had a MRI completed with the following findings: Mild supraspinatus and infraspinatus tendinopathy without focal tears. Mild edema in the axillary recess , correlate clinically for possible adhesive capsulitis . Pt demonstrates with a slight decrease in AROM and strength at right shoulder. Pt will continue to be seen twice a week in order to address all deficits. 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 Chief Complaint Pain,Stiff,Weakness Symptom Type Ache,Throb,Sharp,Dull Symptoms Relieved By Rest/Positioning Symptoms Aggravated Physical Activity,Lifting By Prior Functional None Limitations Current Functional Reaching,Housework,Dressing,Driving,Sleeping,Recreation Limitations Activity Symptom Description Intermittent,Activity Dependent Level of pain today 0 (0-10) Pain scale - at its 0 best (0-10) Pain scale - at its 10 worst (0-10) Shoulder/Elbow Eval Shoulder Objective Measurements Shoulder ROM Right Shoulder Abduction 144 Active Range of Motion (degrees) Shoulder Flexion 135 Active Range of Motion (degrees) Query Text: Shoulder External 60 Rotation Active Range of Motion ( degrees) Shoulder Internal 25 Rotation Active Range of Motion ( degrees) pain with active ROM right shoulder exam standard pain with passive right ROM shoulder exam standard decreased ROM right shoulder exam standard Shoulder MMT Shoulder Abduction 4- Good- Strength Grade Shoulder Flexion 4- Good- Strength Grade Shoulder External 4- Good- Rotation Strength Grade Shoulder Internal 4- Good- Rotation Strength Grade Shoulder Strength Sitting Patient Testing Position Elbow Objective Measurements QuickDASH Activities Please rate your ability to do the following activities in the last week by selecting the number below the appropriate response. 1. Open a tight or No difficulty new jar. 2. Do heavy No difficulty dental amalgam processor (e. g., wash brooks, floors). 3. Carry a shopping No difficulty bag or briefcase. 4. Wash your back. Moderate difficulty 5. Use a knife to No difficulty cut food. 6. Recreational Moderate difficulty activities in which you take some force or impact through your arm, shoulder, or hand (e.g., golf, hammering, tennis, etc.). 7. During the past Not at all week, to what extent has your arm, shoulder or hand problem interfered with your normal social activities with family, friends , neighbors or groups? 8. During the past Not limited at all week, were you limited in your work or other regular daily activites as a result of your arm, shoulder or hand problem? 9. Arm, shoulder or Mild hand pain. 10. Tingling (pins None and needles) in your arm, shoulder or hand. 11. During the past No difficulty week, how much difficulty have you had sleeping because of the pain in your arm, shoulder or hand? Quick DASH 16 OT Patient Goals OT Patient Goals OT Short Term Short term goals: Patient Goals 1. Pt will increase R shoulder flexion to 145 degrees in order to complete daily overhead tasks independently ~50% of the time. 2. Pt will increase R shoulder abduction to 150 degrees to complete upper body dressing independently ~ 50% of the time. 3. Pt will increase R shoulder ER/IR to 75 degrees (ER ) and 45 degrees (IR) in order to complete lower body dressing (putting on and taking off belt) independently ~50% of the time. 4. Pt will increase strength to 4/5 throughout right shoulder in order to complete heavier household tasks ( laundry, mopping, vacuuming) independently ~50% of the time. 5. Pt will verbalize decreased pain levels at worst in right shoulder to a 6/10 in order to complete daily ADLs independently ~50% of the time. 6. Pt will demonstrate improved endurance by completing right shoulder exercises for ~20 minutes prior to rest break in order to increase his tolerance for daily work activities. 7. Pt will demonstrate independence with HEP of AAROM exercises to increase overall functional use of right shoulder in daily activities ~75% of the time. 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 Pt will increase R shoulder flexion to 155 degrees in order to complete daily overhead tasks independently ~75% of the time. 2. Pt will increase R shoulder abduction to 160 degrees to complete upper body dressing independently ~ 75% of the time. 3. Pt will increase R shoulder ER/IR to 80 degrees (ER ) and 55 degrees (IR) in order to complete lower body dressing (putting on and taking off belt) independently ~75% of the time. 4. Pt will increase strength to 4+/5 throughout right shoulder in order to complete heavier household tasks ( laundry, mopping, vacuuming) independently ~50% of the time. 5. Pt will verbalize decreased pain levels at worst in right shoulder to a 3/10 in order to complete daily ADLs independently ~75% of the time. 6. Pt will demonstrate improved endurance by completing right shoulder exercises for ~30 minutes prior to rest break in order to increase his tolerance for daily work activities. 7. Pt will demonstrate independence with HEP of AAROM exercises to increase overall functional use of right shoulder in daily activities ~75% of the time. OT Outpatient Assessment Impairments Problems/Impairments Palpation Tenderness,Impaired Range of Motion,Impaired Strength,Impaired Endurance,Impaired Lifting,Impaired Dressing,Impaired Shower/Bathing,Impaired Household Care,Impaired Recreational Activities,Impaired Work Activities,Subjective C/O Pain Prognosis Rehab Potential Good Clinical Impression Consistent with Yes Diagnosis Outpatient Therapy Plan of Care Treatment Plan May Include Therapeutic Exercise Yes Including Home Exercise Program Manual Therapy Yes Techniques Neuromuscular Re- Yes education Therapeutic Yes Activities to Return to Previous Functional/Work Level ADL/Self Care Yes Education Dry Needling Yes Thermal Modalities Yes Electrical Yes Stimulation Ultrasound/ Yes Phonophoresis Iontophoresis Yes Parrafin Yes Orthotics/Bracing/ Yes Splinting Massage Yes Eval/Re-Eval Yes Frequency Times per week 2 Duration Number of Weeks 6 Addendums This patient is a No candidate for social or vocational rehab ? Patient/Guardian Yes verbally acknowledges understanding of treatment program and consents to further treatment? Patient/Guardian Yes verbally acknowledges understanding of diagnosis, prognosis and goals for treatment? Eval Complexity OT Charge 86597 - Moderate Complexity PHYSICIAN CERTIFICATION: I certify the specified therapy services for Jovanny Costa are required, authorized, and reviewed every 30 days.
== END 2025-05-04 23:59 | disposition home or self-care (01) ==
LOC: OT 15:00
PROVIDERS: Visit Provider Physician Assistant
DX: M25.511 Pain in right shoulder (principal)
CPT/HCPCS: 97014; 97035; 97110; 97140; 97166; G0283

== ENCOUNTER 2025-06-07 14:00 | Outpatient (RCR) | payer OTHER, SELFPAY ==
--- NOTE | 2025-05-17 11:41 | HMH.RHREAS ---
Rehab Reassessment Rehab OP Re-assessment Start: 05/11/25 10:55 Freq: Status: Active Protocol: Document 05/17/25 10:46 RYAN (Rec: 05/17/25 11:41 RYAN [id number]) E-signed By Timothy Rivas OT QuickDASH Activities Please rate your ability to do the following activities in the last week by selecting the number below the appropriate response. 1. Open a tight or No difficulty new jar. 2. Do heavy No difficulty recruiting operations consultant (e. g., wash brooks, floors). 3. Carry a shopping No difficulty bag or briefcase. 4. Wash your back. Mild difficulty 5. Use a knife to No difficulty cut food. 6. Recreational Mild difficulty activities in which you take some force or impact through your arm, shoulder, or hand (e.g., golf, hammering, tennis, etc.). 7. During the past Not at all week, to what extent has your arm, shoulder or hand problem interfered with your normal social activities with family, friends , neighbors or groups? 8. During the past Not limited at all week, were you limited in your work or other regular daily activites as a result of your arm, shoulder or hand problem? 9. Arm, shoulder or Mild hand pain. 10. Tingling (pins None and needles) in your arm, shoulder or hand. 11. During the past No difficulty week, how much difficulty have you had sleeping because of the pain in your arm, shoulder or hand? Quick DASH 14 Rehab Re-assessment Subjective Subjective I do think it is not as stiff as it was. Objective Objective Notes Pt continues to be seen twice a week in order to address right shoulder deficits. Each session, pt engages in AROM, AAROM, and strengthening exercises at right shoulder. Pt is also passively ranged at right shoulder in all planes: flexion, abduction, ER, and IR. Modalities are provided in order to decrease pain/ inflammation. Assessment Progress Assessment Progressing as Expected Assessment Notes Pt is very consistent about attending therapy sessions. He is also very consistent about completing his HEP daily. Pt's AROM has improved since initial evaluation . However, he continues to remain slightly stiff with internal and external rotation. Pt reports an improvement with his overall pain. His worst pain now only reaches a 4/10. Pt will continue to be seen twice a week in order to continue addressing r shoulder deficits. Short term goals met: 1. Pt will increase R shoulder flexion to 145 degrees in order to complete daily overhead tasks independently ~50% of the time. 2. Pt will increase R shoulder abduction to 150 degrees to complete upper body dressing independently ~ 50% of the time. 3. Pt will increase R shoulder ER/IR to 75 degrees (ER ) and 45 degrees (IR) in order to complete lower body dressing (putting on and taking off belt) independently ~50% of the time. 4. Pt will increase strength to 4/5 throughout right shoulder in order to complete heavier household tasks ( laundry, mopping, vacuuming) independently ~50% of the time. 5. Pt will verbalize decreased pain levels at worst in right shoulder to a 6/10 in order to complete daily ADLs independently ~50% of the time. 6. Pt will demonstrate improved endurance by completing right shoulder exercises for ~20 minutes prior to rest break in order to increase his tolerance for daily work activities. 7. Pt will demonstrate independence with HEP of AAROM exercises to increase overall functional use of right shoulder in daily activities ~75% of the time. FPC goals met: 1. Pt will increase R shoulder flexion to 155 degrees in order to complete daily overhead tasks independently ~75% of the time. 2. Pt will increase R shoulder abduction to 160 degrees to complete upper body dressing independently ~ 75% of the time. 3. Pt will increase R shoulder ER/IR to 80 degrees (ER ) and 55 degrees (IR) in order to complete lower body dressing (putting on and taking off belt) independently ~75% of the time. OT Patient Goals OT Short Term Pt has met all short term goals listed above. Patient Goals OT [facility] Patient 4. Pt will increase strength to 4+/5 throughout right Goals shoulder in order to complete heavier household tasks ( laundry, mopping, vacuuming) independently ~50% of the time. 5. Pt will verbalize decreased pain levels at worst in right shoulder to a 3/10 in order to complete daily ADLs independently ~75% of the time. 6. Pt will demonstrate improved endurance by completing right shoulder exercises for ~30 minutes prior to rest break in order to increase his tolerance for daily work activities. 7. Pt will demonstrate independence with HEP of AAROM exercises to increase overall functional use of right shoulder in daily activities ~75% of the time. New AROM goals: 1. Pt will increase R shoulder flexion to 165 degrees in order to complete daily overhead tasks independently ~75% of the time. 2. Pt will increase R shoulder abduction to 165 degrees to complete upper body dressing independently ~ 75% of the time. 3. Pt will increase R shoulder ER/IR to 90 degrees (ER ) and 70 degrees (IR) in order to complete lower body dressing (putting on and taking off belt) independently ~75% of the time. Plan Plan Continue with OT plan of care at this time to continue improving overall R shoulder functional ability. Frequency of Therapy 2x's a week Duration of Therapy 4 more weeks Therapeutic Exercise Yes Including Home Exercise Program Manual Therapy Yes Techniques Neuromuscular Re- Yes education Thermal Modalities Yes Electrical Yes Stimulation Ultrasound/ Yes Phonophoresis Iontophoresis Yes Massage Yes Eval/Re-Eval Yes Time and Billing Re-Eval Time 8 Re-Eval Billing 1 Units Charge for OT Yes reassessment? PHYSICIAN CERTIFICATION: I certify the specified therapy services for Jovanny Costa are required, authorized, and reviewed every 30 days.
== END 2025-06-07 23:59 | disposition home or self-care (01) ==
LOC: OT 14:00
PROVIDERS: Visit Provider Physician Assistant
DX: M75.01 Adhesive capsulitis of right shoulder (principal); M67.911 Unspecified disorder of synovium and tendon, right shoulder
CPT/HCPCS: 97014; 97035; 97110; 97140; 97168; G0283